=== PATIENT | male | born 1955 | race Caucasian/White ===

== ENCOUNTER → 2016-08-04 | Outpatient (CLI) | payer OTHER ==
--- NOTE | 2016-08-04 12:20 | RAD ---
Indication scrotal discomfort. Bulge. The scrotum and base of the penis, where bulge was identified, were examined. 2 cine loops were obtained. The right testicle measures 5.5 x 4 x 2.5 cm and appears normal. No mass is seen. There is normal flow. The epididymis appears unremarkable. The left testicle measures 5 x 3 x 2.3 cm and also appears normal. The left epididymis appears unremarkable. The area of the bulge, at the base of the penis, was also evaluated. There is a small hernia, containing omentum or mesentery, no bowel is seen. IMPRESSION: Normal scrotal ultrasound. At the base of the penis is there is a small fat-containing hernia.
== END | disposition home or self-care (01) ==
LOC: US 10:34
PROVIDERS: ATTEND Family Medicine
DX: K40.90 Unilateral inguinal hernia, without obstruction or gangrene, not specified as recurrent (principal)
CPT/HCPCS: 76870; 93975

== ENCOUNTER → 2019-03-17 | Outpatient (CLI) | payer OTHER ==
--- NOTE | 2019-03-17 15:40 | RAD ---
EXAM: Right lower extremity venous Doppler. HISTORY: Right lower extremity pain/swelling. Elevated d-dimer. COMPARISON: None. FINDINGS: Grayscale and Doppler analysis of the right lower extremity deep venous system was performed with graded compression and augmentation. The common femoral, greater saphenous, superficial femoral, popliteal and calf veins were assessed. There is no evidence of deep venous thrombosis. IMPRESSION: 1. No evidence of deep venous thrombosis. Electronically signed by: Vonnie Herndon MD (03/17/2019 3:37 PM) [place] [id number]
== END | disposition home or self-care (01) ==
LOC: US 14:47
PROVIDERS: ATTEND Family Medicine
DX: M79.604 Pain in right leg (principal)
CPT/HCPCS: 93971